=== PATIENT | male | born 1985 | race Hispanic/Latino ===

== ENCOUNTER 2019-07-24 14:06 | Emergency (ER) | payer SELFPAY ==
[2019-07-24 14:43] LABS: BASOPHILS % (AUTO) 0.7 % (0.0-5.0); EOSINOPHILS % (AUTO) 2.2 % (0.0-8.0); HEMATOCRIT 42.2 % (42-54); LYMPHOCYTES % (AUTO) 23.3 % (21.0-51.0); MEAN CORPUSCULAR HEMOGLOBIN 31.5 pg (27.0-33.0); MEAN CORPUSCULAR HGB CONC 33.2 g/dL (32.0-36.0); MONOCYTES % (AUTO) 6.2 % (3.0-13.0); NEUTROPHILS % (AUTO) 66.8 % (40.0-77.0); PLATELET COUNT (AUTO) 489 K/uL (130-400); RED BLOOD CELL COUNT(AUTO) 4.44 MIL/uL (4.50-6.20); RED CELL DISTRIBUTION WIDTH 13.1 % (11.0-15.5); WHITE BLOOD COUNT (AUTO) 7.4 K/uL (4.8-10.8)
[2019-07-24] MEDS ORDERED: SODIUM CHLORIDE 0.9% 1000ML 2,000 ML IV ONE (14:43)
[2019-07-24] MEDS ORDERED: CEFTRIAXONE SODIUM 1 GM ONE (14:44)
[2019-07-24] MEDS ORDERED: KETOROLAC TROMETHAMINE 30MG/ML ONE (14:44)
[2019-07-24] MEDS ORDERED: VANCOMYCIN 1GM+NS 250ML 500 ML IV ONE (14:44)
[2019-07-24 14:55] LABS: POTASSIUM 4.1 mmol/L (3.5-5.1)
[2019-07-24 15:00] LABS: ALBUMIN 3.5 g/dL (3.5-5.0); BILIRUBIN,TOTAL 1.3 mg/dL (0.2-1.0); CRP QUANTITATIVE 7.1 mg/L (0.00-9.0); INR 1.03 (0.85-1.15); PARTIAL THROMBOPLASTIN TIME 25.5 SEC (26.3-35.5); PROTHROMBIN TIME 10.8 SEC (9.6-11.6); TOTAL PROTEIN, SERUM 7.8 g/dL (6.0-8.3)
[2019-07-24 15:55] LABS: ERYTHROCYTE SEDIMENTATION RATE 45 MM/HR (0-15)
== END 2019-07-24 18:03 | disposition home or self-care (01) ==
LOC: EDH 14:06
DX: L03.115 Cellulitis of right lower limb (principal); Z79.899 Other long term (current) drug therapy; Z72.0 Tobacco use
CPT/HCPCS: 36415; 71045; 73590; 73630; 80053; 83605; 85025; 85610; 85651; 85730; 86140; 87040 ×2; 87070; 87076; 93971; 96365; 96366; 96375; 99285; J0696; J1885; J3370; J7030